=== PATIENT | female | born 1970 | race Caucasian/White ===

== ENCOUNTER 2023-10-26 18:43 | Emergency (ER) | payer OTHER ==
[~2023-10-26] VITALS: Ht 160 cm; Wt 81.6 kg
[2023-10-26 19:38] VITALS: BP_SYST 134; PULSE 75; RESP 16; TEMP 97.5; O2SAT 99
[2023-10-26] MEDS ORDERED: IBUP-1969 PO (20:44)
[2023-10-26 20:52] VITALS: BP_SYST 134; PULSE 75; RESP 16; TEMP 97.5; O2SAT 99
== END 2023-10-26 20:54 | disposition home or self-care (01) ==
LOC: SED 18:43
DX: S83.91XA Sprain of unspecified site of right knee, initial encounter (principal); I10 Essential (primary) hypertension; Z79.899 Other long term (current) drug therapy; W01.0XXA Fall on same level from slipping, tripping and stumbling without subsequent striking against object, initial encounter; Y93.89 Activity, other specified; Y92.89 Other specified places as the place of occurrence of the external cause; Y99.8 Other external cause status
CPT/HCPCS: 73560; 99283